=== PATIENT | female | born 1930 | race Caucasian/White ===

== ENCOUNTER 2018-02-03 05:26 | Observation (INO) ==
[2018-02-03] MEDS ORDERED: HYDROmorphone PF Inj 1 MG/ML Ampul IV.PUSH ONE (05:44)
[2018-02-03 06:05] LABS: Baso % (Auto) 0.2 % (0.0-2.0); Hematocrit 39.2 % (35.0-46.0); Hemoglobin 13.4 gm/dL (11.6-15.3); Mean Corpuscular HGB Conc 34.3 % (32.0-36.0); Mean Corpuscular Volume 93.3 fL (80.0-100.0); Mean Platelet Volume 7.5 fL (7.0-11.0); Mono # (Auto) 1.1 th/mm3 (0.0-0.9); Mono % (Auto) 5.4 % (0.0-8.0); Neut % (Auto) 89.4 % (16.0-70.0); Platelet Count 327 th/mm3 (150-450); Red Cell Distribution Width 14.1 % (11.6-17.2); White Blood Count 20.1 th/mm3 (4.0-11.0)
[2018-02-03 06:18] LABS: Activated Partial Thrombo Time 23.3 sec (23.4-31.7); Prothrombin Time 10.5 sec (9.8-11.6)
--- NOTE | 2018-02-03 06:32 | XR ---
EXAM DATE: 02/03/2018 6:24 AM EST AGE/SEX: 87 years / Female INDICATIONS: Pain due to fall. CLINICAL DATA: This is the patient's initial encounter. Patient reports that signs and symptoms have been present for 1 day and indicates a pain score of 2/10. MEDICAL/SURGICAL HISTORY: Hypertension. Hypothyroidism. . Cervical fusion. COMPARISON: . FINDINGS: No fracture is seen. The hip joints are normally aligned. The pubic symphysis and sacroiliac joints a ppear aligned. There is degenerative change at the lower lumbar spine. 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 CONCLUSION: No acute abnormality is seen. Electronically signed by: Kayode Giles MD Board Certified Radiologist 02/03/2018 6:30 AM EST
[2018-02-03 06:33] LABS: Alanine Aminotransferase 24 U/L (10-53); Albumin 3.8 g/dL (3.4-5.0); Anion Gap 9 meq/L (5-15); Aspartate Aminotransferase 33 U/L (15-37); Blood Urea Nitrogen 16 mg/dL (7-18); Calcium 8.3 mg/dL (8.5-10.1); Carbon Dioxide 25.7 meq/L (21.0-32.0); Chloride 106 meq/L (98-107); Glomerular Filtration Rate 68 mL/min (>89); Glucose,Random 156 mg/dL (74-106); Potassium 3.3 meq/L (3.5-5.1); Sodium 141 meq/L (136-145)
--- NOTE | 2018-02-03 06:34 | XR ---
EXAM DATE: 02/03/2018 6:26 AM EST AGE/SEX: 87 years / Female INDICATIONS: Trauma due to fall. CLINICAL DATA: This is the patient's initial encounter. Patient reports that signs and symptoms have been present for 1 day and indicates a pain score of 0/10. MEDICAL/SURGICAL HISTORY: Hypertension. Hypothyroidism. . Cervical fusion. COMPARISON: [facility], XR CHEST PA AND LAT, 09/08/2016. . FINDINGS: The heart size is upper limits of normal. There is increased density at the medial right base. This w as present previously. This could be related to a fat pad or eventration of the diaphragm. There are some focal increased density seen at the left base which appears to overlap the anterior aspect of th e fourth rib. The lungs appear otherwise clear. Surgical hardware is seen in the cervical spine. CONCLUSION: No acute cardiopulmonary process. Focal increased density at the left base projecting over the left cardiac apex and the anterior fourt h left rib. Uncertain if this represents some focal increased density related to the rib or potential ly an underlying mass. This could be followed up with a future chest x-ray. Electronically signed by: Kayode Giles MD Board Certified Radiologist 02/03/2018 6:33 AM EST
[2018-02-03 06:36] LABS: Alkaline Phosphatase 88 U/L (45-117)
--- NOTE | 2018-02-03 06:53 | ED ---
HPI General Chief Complaint: Fall Stated Complaint: Fall Time Seen by Provider: 02/03/18 05:44 Source: patient and EMS Mode of arrival: EMS Limitations: no limitations History of Present Illness HPI Narrative: Is an 87-year-old woman presents emerged prior complaining of right leg pain rating from the low back down all the way into her right leg following a fall. She complains of severe pain in her right leg after a fall. She is unable to describe its on the right side. Denies hitting her head. She had a crawl to the phone which took several hours. She fell initially about 6 PM. She otherwise has been feeling generally well and healthy. No other complaints. Related Data Home Medications Medication Instructions Recorded Confirmed amlodipine PO DAILY 02/03/18 atorvastatin PO DAILY 02/03/18 levothyroxine mcg PO DAILY 02/03/18 losartan mg PO DAILY 02/03/18 Allergies Allergy/AdvReac Type Severity Reaction Status Date / Time ciprofloxacin Allergy Severe Hives Verified 02/03/18 05:35 Review of Systems ROS: all other systems reviewed are negative [facility] Medical History Medical History HTN (hypertension) (Acute) High cholesterol (Acute) Surgical History Surgical History Hx of neck surgery (Acute) Social History Social History Substance History: No History of Abuse Second Hand Smoke Exposure: No Smoking Status: Never smoker How Often Do You Have a Drink Containing Alcohol: Never Recent Travel in [facility] within the Last 8 Weeks: No Recent Out of Country Travel within the Last 8 Weeks: No Immunization History Tetanus Immunization: Unsure Exam Narrative Exam Narrative: GENERAL: 87-year-old woman, appears uncomfortable, nontoxic. SKIN: Focused skin assessment warm/dry. HEAD: Atraumatic. Normocephalic. EYES: Pupils equal and round. No scleral icterus. No injection or drainage. ENT: No nasal bleeding or discharge. Mucous membranes pink and moist. NECK: Trachea midline. No JVD. CARDIOVASCULAR: Regular rate and rhythm. No murmur appreciated. RESPIRATORY: No accessory muscle use. Clear to auscultation. Breath sounds equal bilaterally. GASTROINTESTINAL: Abdomen soft, non-tender, nondistended. Hepatic and splenic margins not palpable. MUSCULOSKELETAL: Hold right hip flexed, resisting any movement of the hip or knee. There is no knee tenderness. Good pulses distally. NEUROLOGICAL: Awake and alert. No obvious cranial nerve deficits. Motor grossly within normal limits. Normal speech. PSYCHIATRIC: Appropriate mood and affect; insight and judgment normal. Course Initial Documented Vital Signs Temperature 98.5 F 02/03/18 05:35 Pulse Rate 103 H 02/03/18 05:35 Respiratory Rate 16 02/03/18 05:35 Blood Pressure 168/77 H 02/03/18 05:35 Pulse Oximetry 97 02/03/18 05:35 Last Documented Vital Signs Temperature 98.5 F 02/03/18 05:35 Pulse Rate 90 02/03/18 07:08 Respiratory Rate 16 02/03/18 07:08 Blood Pressure 118/63 02/03/18 07:08 Pulse Oximetry 97 02/03/18 07:09 Medical Decision Making MDM Narrative Medical decision making narrative: 87-year-old woman with a fall, right lower extremity injury. Suspect hip fracture. Will check labs, x-ray, pain control, reassess. Medical Screen Exam Complete: Yes Emergency Medical Condition: Yes Lab Data Result diagrams: 02/03/18 05:50 02/03/18 05:50 Lab Results 02/03/18 02/03/18 02/03/18 Range/Units 05:50 05:50 05:50 WBC 20.1 H (4.0-11.0) th/mm3 RBC 4.20 (4.00-5.30) mil/mm3 Hgb 13.4 (11.6-15.3) gm/dL Hct 39.2 (35.0-46.0) % MCV 93.3 (80.0-100.0) fL MCH 32.0 (27.0-34.0) pg MCHC 34.3 (32.0-36.0) % RDW 14.1 (11.6-17.2) % Plt Count 327 (150-450) th/mm3 MPV 7.5 (7.0-11.0) fL Neut % (Auto) 89.4 H (16.0-70.0) % Lymph % (Auto) 5.0 L (9.0-44.0) % Liberty % (Auto) 5.4 (0.0-8.0) % Eos % (Auto) 0.0 (0.0-4.0) % Baso % (Auto) 0.2 (0.0-2.0) % Neut # (Auto) 18.0 H (1.8-7.7) th/mm3 Lymph # (Auto) 1.0 (1.0-4.8) th/mm3 Liberty # (Auto) 1.1 H (0.0-0.9) th/mm3 Eos # (Auto) 0.0 (0.0-0.4) th/mm3 Baso # (Auto) 0.0 (0.0-0.2) th/mm3 WBC Differential . Differential Comment Auto diff final PT 10.5 (9.8-11.6) sec INR 1.0 Ratio APTT 23.3 L (23.4-31.7) sec Sodium 141 (136-145) meq/L Potassium 3.3 L (3.5-5.1) meq/L Chloride 106 (98-107) meq/L Carbon Dioxide 25.7 (21.0-32.0) meq/L Anion Gap 9 (5-15) meq/L BUN 16 (7-18) mg/dL Creatinine 0.80 (0.50-1.00) mg/dL Estimated GFR 68 L (>89) mL/min Random Glucose 156 H (74-106) mg/dL Calcium 8.3 L (8.5-10.1) mg/dL Total Bilirubin 0.6 (0.2-1.0) mg/dL AST 33 (15-37) U/L ALT 24 (10-53) U/L Alkaline Phosphatase 88 (45-117) U/L Total Protein 7.0 (6.4-8.2) g/dL Albumin 3.8 (3.4-5.0) g/dL Blood Type Blood Type Recheck Antibody Screen 02/03/18 Range/Units 05:50 WBC (4.0-11.0) th/mm3 RBC (4.00-5.30) mil/mm3 Hgb (11.6-15.3) gm/dL Hct (35.0-46.0) % MCV (80.0-100.0) fL MCH (27.0-34.0) pg MCHC (32.0-36.0) % RDW (11.6-17.2) % Plt Count (150-450) th/mm3 MPV (7.0-11.0) fL Neut % (Auto) (16.0-70.0) % Lymph % (Auto) (9.0-44.0) % Liberty % (Auto) (0.0-8.0) % Eos % (Auto) (0.0-4.0) % Baso % (Auto) (0.0-2.0) % Neut # (Auto) (1.8-7.7) th/mm3 Lymph # (Auto) (1.0-4.8) th/mm3 Liberty # (Auto) (0.0-0.9) th/mm3 Eos # (Auto) (0.0-0.4) th/mm3 Baso # (Auto) (0.0-0.2) th/mm3 WBC Differential Differential Comment PT (9.8-11.6) sec INR Ratio APTT (23.4-31.7) sec Sodium (136-145) meq/L Potassium (3.5-5.1) meq/L Chloride (98-107) meq/L Carbon Dioxide (21.0-32.0) meq/L Anion Gap (5-15) meq/L BUN (7-18) mg/dL Creatinine (0.50-1.00) mg/dL Estimated GFR (>89) mL/min Random Glucose (74-106) mg/dL Calcium (8.5-10.1) mg/dL Total Bilirubin (0.2-1.0) mg/dL AST (15-37) U/L ALT (10-53) U/L Alkaline Phosphatase (45-117) U/L Total Protein (6.4-8.2) g/dL Albumin (3.4-5.0) g/dL Blood Type O Positive Blood Type Recheck Required Antibody Screen Negative Imaging Data Radiologist's impression: Chest X-Ray 02/03/18 05:44 CONCLUSION: No acute cardiopulmonary process. Focal increased density at the left base projecting over the left cardiac apex and the anterior fourth left rib. Uncertain if this represents some focal increased density related to the rib or potentially an underlying mass. This could be followed up with a future chest x-ray. Hip X-Ray 02/03/18 05:45 CONCLUSION: No acute abnormality is seen. Knee X-Ray 02/03/18 06:31 CONCLUSION: Mild degenerative change. No evidence of acute abnormality. Discharge Plan Discharge Disposition Patient Disposition: Sign Out(ED Internal Use Only) Physicians Team ED Provider: Mat Laird Primary Care Provider: UNKNOWN, Rxs /Orders / Referrals /Forms Prescriptions: No Action atorvastatin 10 mg Tablet PO DAILY RF: 0 losartan 25 mg Tablet PO DAILY RF: 0 levothyroxine 13 mcg Capsule PO DAILY RF: 0 amlodipine PO DAILY RF: 0 Status ED Status: With Doctor
--- NOTE | 2018-02-03 06:57 | XR ---
EXAM DATE: 02/03/2018 6:50 AM EST AGE/SEX: 87 years / Female INDICATIONS: Pain due to fall. CLINICAL DATA: This is the patient's initial encounter. Patient reports that signs and symptoms have been present for 1 day and indicates a pain score of 4/10. MEDICAL/SURGICAL HISTORY: . Hypertension. Hypothyroidism. . . Cervical fusion. COMPARISON: No prior exams available for comparison. FINDINGS: Bony structures are intact and in normal alignment. Joints are intact without dislocation . . Mild d egenerative changes identified within the medial lateral joint line. Osseous density is normal. Sof t tissues are unremarkable. No radiopaque foreign bodies seen. CONCLUSION: Mild degenerative change. No evidence of acute abnormality. Electronically signed by: Griselda Marques MD Board Certified Radiologist 02/03/2018 6:56 AM RIGOBERTO T
--- NOTE | 2018-02-03 08:16 | CT ---
EXAM DATE: 02/03/2018 8:03 AM EST AGE/SEX: 87 years / Female INDICATIONS: Right leg pain radiating from back, status post fall yesterday. CLINICAL DATA: This is the patient's initial encounter. Patient reports that signs and symptoms have been present for 2 days and indicates a pain score of 6/10. MEDICAL/SURGICAL HISTORY: Hypertension. . neck surgery RADIATION DOSE: 28.58 CTDI (mGy) COMPARISON: No prior exams available for comparison. TECHNIQUE: Contiguous axial images were acquired with a multirow detector CT scanner without contras t. Multiplanar reconstructions in the sagittal and coronal plane were also performed. Using automate d exposure control and adjustment of the mA and/or kV according to patient size, radiation dose was k ept as low as reasonably achievable to obtain optimal diagnostic quality images. DICOM format image data is available electronically for review and comparison. FINDINGS: Vertebrae: There is a superior endplate disc herniation at the level of T12. Margins are well-cortic ated. The remainder of the vertebral bodies maintain normal height. The bones appear mildly osteopeni c. No evidence of vertebral body fracture. Alignment: There is levoscoliosis of the lumbar spine present on the frontal exam and retrolisthesis of L1 on L2, L2 on L3 and anterolisthesis of L4 on L5 and to a lesser extent L5 on S1. T12-L1: The thecal sac has a normal diameter. No evidence of disc bulge or protrusion. The neural foramina are patent bilaterally. Moderate facet degenerative change. L1-L2: Severe disc desiccation and disc space narrowing with grade 1 retrolisthesis of L1 on L2. Aki cified posterior disc osteophyte complex and moderate facet degenerative changes. Severe bilateral ne uroforaminal stenosis, right greater than left. No significant spinal canal stenosis. L2-L3: Severe disc desiccation and disc space narrowing with posterior disc osteophyte complex and m oderate facet degenerative changes. Severe right-sided neuroforaminal stenosis and moderate to severe on the left. L3-L4: Disc desiccation and disc space narrowing with vacuum disc phenomena and a broad-based glass installer ior disc protrusion extending into the bilateral neuroforamina. Moderate facet degenerative changes. There is severe right-sided neuroforaminal stenosis and moderate on the left. L4-L5: Severe disc desiccation and disc space narrowing with grade 1 anterolisthesis of L4 and L5. P osterior osteophytes and severe facet degenerative changes result in severe central canal stenosis an d severe bilateral neuroforaminal stenosis. L5-S1: Disc desiccation and disc space narrowing with grade 1 anterolisthesis of L5 on S1. Posterior disc osteophyte complex and severe facet degenerative changes results in severe central canal stenos is and severe bilateral neuroforaminal stenosis. CONCLUSION: 1. No evidence of fracture. Severe degenerative changes seen throughout the imaged thoracic and lumb ar spine resulting in multiple levels of severe central canal stenosis and neuroforaminal stenosis. Electronically signed by: Griselda Marques MD Board Certified Radiologist 02/03/2018 8:15 AM RIGOBERTO T
--- NOTE | 2018-02-03 08:19 | CT ---
EXAM DATE: 02/03/2018 8:02 AM EST AGE/SEX: 87 years / Female INDICATIONS: Right leg pain radiating from back, status post fall yesterday. CLINICAL DATA: This is the patient's initial encounter. Patient reports that signs and symptoms have been present for 2 days and indicates a pain score of 6/10. MEDICAL/SURGICAL HISTORY: Hypertension. . Neck surgery RADIATION DOSE: 12.14 CTDI (mGy) COMPARISON: [facility], HIP RIGHT W AP PELVIS 2V, 02/03/2018. [facility] [place] LUMBAR SPINE W/O CONTRAST, . . TECHNIQUE: Multiple contiguous axial images were obtained through the pelvis without contrast. Imag es were obtained using multiple row detector helical technique. . Using automated exposure control an d adjustment of the mA and/or kV according to patient size, radiation dose was kept as low as reasona yesi achievable to obtain optimal diagnostic quality images. DICOM format image data is available yuli ctronically for review and comparison. FINDINGS: Bowel/Mesentery: The bowel loops are grossly unremarkable. The sigmoid colon has a normal configura tion. Bladder: Contours are smooth. Retroperitoneum: No evidence of deep pelvic adenopathy. Reproductive Organs: Multiple calcified fibroids identified within the uterus. Inguinal: The inguinal region is unremarkable without evidence of adenopathy. Bony Structures: Severe degenerative changes identified within the lumbar spine, pubic symphysis and mild degenerative changes of the hips. No evidence of fracture. The bones appear mildly osteopenic. CONCLUSION: 1. Severe degenerative changes within the lumbar spine. This is better described on comparison CT alma rosa mbar spine which demonstrates multiple levels of central canal stenosis and bilateral neuroforaminal stenosis which is worse on the right. No evidence of fracture. Electronically signed by: Griselda Marques MD Board Certified Radiologist 02/03/2018 8:18 AM ES T
[2018-02-03 09:52] LABS: Bilirubin,Urine Negative (Negative); Clarity,Urine Clear (Clear); Color,Urine Yellow (Yellw/Straw); Glucose,Urine (UA) Negative (Negative); Leukocyte Esterase,Urine Negative (Negative); Mucus,Urine Few /lpf (Occasional); Nitrite,Urine Negative (Negative); Specific Gravity,Urine 1.015 (1.002-1.035)
[2018-02-03] MEDS ORDERED: Morphine Inj 4 MG/ML Vial IV.PUSH ONE (10:44)
[2018-02-03] MEDS ORDERED: Acetaminophen 325 MG Tablet PO PRN ×2 (10:58)
[2018-02-03] MEDS ORDERED: Naloxone Inj 0.4 MG/ML Vial IV.PUSH PRN (10:58)
[2018-02-03] MEDS ORDERED: Ketorolac Inj 30 MG/ML (IVP) Vial IV.PUSH PRN (10:58)
[2018-02-03] MEDS ORDERED: Bisacodyl 10 MG Supp RECTAL PRN (10:58)
[2018-02-03] MEDS ORDERED: Iohexol 300 MG/ML 50 ML Vial (for Rad Diag) IVCONTRAST ONE (11:08)
[2018-02-03] MEDS: Heparin - SQ 10,000 UNITS/ML Vial SQ SCH ×2 (11:19→22:00)
[2018-02-03] MEDS ORDERED: Ketorolac Inj 30 MG/ML (IVP) Vial IV.PUSH ONE (15:22)
--- NOTE | 2018-02-03 15:22 | P.HPIM ---
History of Present Illness Primary Care Physician: UNKNOWN Chief Complaint: Back with right lower leg pain and numbness History of Present Illness: 87-year-old white female with a history of chronic low back pain, hyperlipidemia, hypertension, hypothyroidism presents emergency room after she fell yesterday evening secondary to worsening of her chronic low back pain now with radiation towards her right lower leg with mild right lateral thigh numbness. Patient states that she landed on her right side and since then had difficulty getting up and putting weight and ambulating. She usually ambulates independently. She has had chronic low back pain for many years and stated that during the past 4 days this pain has exacerbated and therefore contacted her primary care physician who started her on a Medrol Dosepak. She took her first steroid dose yesterday morning with no relief. She reports she had previous neck surgery with Dr. Tan Pfeiffer and at this time would follow-up with him as an outpatient for her chronic back pain and lumbar stenosis. She denies loss of consciousness from the fall. She states that she currently lives alone. Diagnosis (1) Degenerative lumbar spinal stenosis: Review of Systems Constitutional: Reports as per HPI, Denies fatigue and Denies headache(s) Eyes: Denies blurry vision, Denies change in vision and Denies eye pain Ears, Nose, Mouth, and Throat: Denies abnormal hearing, Denies headache(s), Denies mouth pain, Denies nasal congestion, Denies neck pain and Denies sore throat Cardiovascular: Denies chest pain, Denies pedal edema, Denies palpitations and Denies dyspnea Respiratory: Denies cough and Denies dyspnea Gastrointestinal: Denies abdominal pain, Denies constipation, Denies loose stools, Denies nausea and Denies vomiting Musculoskeletal: Reports as per HPI, Reports back pain, Denies myalgias, Reports arthralgias (Chronic back pain worse as per HPI), Denies neck pain and Reports numbness (Right lateral upper leg area) Skin/Breast: Denies new lesions and Denies rash Neurologic: Reports as per HPI, Denies abnormal hearing, Denies headache(s), Denies focal weakness, Denies memory loss, Reports numbness and Reports radicular pain Psychiatric: Denies anxiety, Denies depression and Denies memory loss Endocrine: Denies cold intolerance, Denies heat intolerance and Denies palpitations Hematologic/Lymphatic: Denies easy bleeding and Denies easy bruising PMFSH Medical History Medical History HTN (hypertension) (Chronic) High cholesterol (Chronic) Hypothyroid (Chronic) Surgical History Surgical History Hx of neck surgery (Chronic) Family History Family History Father Heart disease Social History Social History Substance History: No History of Abuse Second Hand Smoke Exposure: No Smoking Status: Never smoker How Often Do You Have a Drink Containing Alcohol: Never Recent Travel in [place] within the Last 8 Weeks: No Recent Out of Country Travel within the Last 8 Weeks: No Immunization History Tetanus Immunization: Unsure Medications and Allergies Allergies Allergy/AdvReac Type Severity Reaction Status Date / Time ciprofloxacin Allergy Severe Hives Verified 02/03/18 05:35 Home Medications Medication Instructions Recorded Confirmed Type amlodipine PO DAILY 02/03/18 History atorvastatin PO DAILY 02/03/18 History levothyroxine mcg PO DAILY 02/03/18 History losartan mg PO DAILY 02/03/18 History methylprednisolone [Medrol (Alfa)] 4 mg PO DAILY 02/03/18 02/03/18 History Active Medications: Active Medications Acetaminophen (Tylenol) 650 mg PO Q4H PRN PRN Reason: Temp > 100.4 Acetaminophen (Tylenol) 650 mg PO Q6HR PRN PRN Reason: PAIN SCALE 1 TO 2 Hydrocodone Bitart/Acetaminophen ([place] 7.5/325) 1 tab PO Q4H PRN PRN Reason: PAIN SCALE 6 TO 10 Last Admin: 02/03/18 13:36 Dose: 1 tab Al Hydroxide/Mg Hydroxide (Milk Of Prisca Liq) 30 ml PO Q12H PRN PRN Reason: Mild Constipation Bisacodyl (Dulcolax Supp) 10 mg RECTAL DAILY PRN PRN Reason: SEVERE CONSITIPATION Cyclobenzaprine HCl (Flexeril) 10 mg PO Q8H PRN PRN Reason: SPASM Heparin Sodium (Porcine) (Heparin Inj) 5,000 units SQ Q12H KRYSTAL Last Admin: 02/03/18 11:19 Dose: 5,000 units Ketorolac Tromethamine (Toradol Inj) 15 mg IV.PUSH Q6H PRN PRN Reason: BREAKTHROUGH PAIN Stop: 02/08/18 10:57 Lactulose (Lactulose Liq) 30 ml PO DAILY PRN PRN Reason: SEVERE CONSITIPATION Naloxone HCl (Narcan Inj) 0.4 mg IV.PUSH UNSCH PRN PRN Reason: SEE LABEL COMMENTS Ondansetron HCl (Zofran Inj) 4 mg IV.PUSH Q6H PRN PRN Reason: NAUSEA OR VOMITING Senna/Docusate Sodium (Roshni-Colace) 1 tab PO BID KRYSTAL Sennosides (Senokot) 17.2 mg PO Q12H PRN PRN Reason: Moderate Constipation Sodium Chloride (Ns Flush) 2 ml IV.FLUSH UNSCH PRN PRN Reason: FLUSH AFTER USING IV ACCESS Sodium Chloride (Ns Flush) 2 ml IV.FLUSH BID KRYSTAL Sodium Chloride (Ns Flush) 2 ml IV.FLUSH PRN PRN PRN Reason: FLUSH AFTER USING IV ACCESS Tramadol HCl (Ultram) 50 mg PO Q4H PRN PRN Reason: PAIN SCALE 3 TO 5 Physical Exam Vital signs: Last Vital Signs Temp 98.5 F 02/03/18 05:35 Pulse 80 02/03/18 10:58 Resp 14 02/03/18 10:58 BP 155/72 H 02/03/18 10:58 Pulse Ox 95 02/03/18 10:58 Intake & Output 02/01/18 02/02/18 02/03/18 02/04/18 06:59 06:59 06:59 06:59 Output Total 600 / 600 Balance -600 / -600 Weight 61.235 kg Results Labs CBC & Chem 7: 02/03/18 05:50 02/03/18 05:50 Imaging Impressions Chest X-Ray 02/03/18 05:44 CONCLUSION: No acute cardiopulmonary process. Focal increased density at the left base projecting over the left cardiac apex and the anterior fourth left rib. Uncertain if this represents some focal increased density related to the rib or potentially an underlying mass. This could be followed up with a future chest x-ray. Hip X-Ray 02/03/18 05:45 CONCLUSION: No acute abnormality is seen. Knee X-Ray 02/03/18 06:31 CONCLUSION: Mild degenerative change. No evidence of acute abnormality. Lumbar Spine CT 02/03/18 07:03 CONCLUSION: 1. No evidence of fracture. Severe degenerative changes seen throughout the imaged thoracic and lumbar spine resulting in multiple levels of severe central canal stenosis and neuroforaminal stenosis. Pelvis CT 02/03/18 07:03 CONCLUSION: 1. Severe degenerative changes within the lumbar spine. This is better described on comparison CT lumbar spine which demonstrates multiple levels of central canal stenosis and bilateral neuroforaminal stenosis which is worse on the right. No evidence of fracture. Caprini VTE Risk Assessment Caprini VTE Risk Assessment: Moderate/High Risk (score >= 2) Caprini Risk Assessment Model: Point Value = 1 Point Value = 2 Point Value = 3 Point Value = 5 Age 41-60 Minor surgery BMI > 25 kg/m2 Swollen legs Varicose veins or History of unexplained or recurrent spontaneous Oral contraceptives or hormone replacement Sepsis (< 1 month) Serious lung disease, including pneumonia (< 1 month) Abnormal pulmonary function Acute myocardial infarction Congestive heart failure (< 1 month) History of inflammatory bowel disease Medical patient at bed rest Age 61-74 Arthroscopic surgery Major open surgery (> 45 min) Laparoscopic surgery (> 45 min) Malignancy Confined to bed (> 72 hours) Immobilizing plaster cast Central venous access Age >= 75 History of VTE Family history of VTE Factor V Leiden Prothrombin [id number] Lupus anticoagulant Anticardiolipin antibodies Elevated serum homocysteine Heparin-induced thrombocytopenia Other congenital or acquired thrombophilia Stroke (< 1 month) Elective arthroplasty Hip, pelvis, or leg fracture Acute spinal cord injury (< 1 month) Prophylaxis Regimen: Total Risk Factor Score Risk Level Prophylaxis Regimen 0-1 Low Early ambulation 2 Moderate Order ONE of the following: *Sequential Compression Device (SCD) *Heparin 5000 units SQ BID 3-4 Higher Order ONE of the following medications: *Heparin 5000 units SQ TID *Enoxaparin/Lovenox 40 mg SQ daily (WT < 150 kg, CrCl > 30 mL/min) *Enoxaparin/Lovenox 30 mg SQ daily (WT < 150 kg, CrCl > 10-29 mL/min) *Enoxaparin/Lovenox 30 mg SQ BID (WT < 150 kg, CrCl > 30 mL/min) AND/OR *Sequential Compression Device (SCD) 5 or more Highest Order ONE of the following medications: *Heparin 5000 units SQ TID (Preferred with Epidurals) *Enoxaparin/Lovenox 40 mg SQ daily (WT < 150 kg, CrCl > 30 mL/min) *Enoxaparin/Lovenox 30 mg SQ daily (WT < 150 kg, CrCl > 10-29 mL/min) *Enoxaparin/Lovenox 30 mg SQ BID (WT < 150 kg, CrCl > 30 mL/min) AND *Sequential Compression Device (SCD) Assessment and Plan (1) Degenerative lumbar spinal stenosis: Code(s): M48.061 - Spinal stenosis, lumbar region without neurogenic claudication Status: Acute Plan 87-year-old white female with a history of hypertension, hyperlipidemia, hypothyroidism, chronic low back pain with acute exacerbation leading to a fall. Status post fall due to acute exacerbation of chronic back pain with right radiculopathy, CT lumbar spine revealed severe lumbar stenosis Place patient observation for pain control, anti-inflammatory, physical therapy to evaluate gait and balance. States that she will follow-up with Dr. Tan Pfeiffer for further evaluation should the pain not improve. Due to her age she is not contemplating surgery at this time. Trial of gabapentin, trial of lidocaine patch Leukocytosisno signs of active infection likely due to stress reaction and recent steroid use History of hypertensionresume home amlodipine and losartan History hyperlipidemiaresume statin History of hypothyroidism resume levothyroxine Hypokalemiareplete DVT prophylaxisheparin
[2018-02-03] MEDS: amLODIPine 5 MG Tablet PO SCH (16:11)
[2018-02-03] MEDS: Lidocaine 5% Patch T-DERMAL SCH (16:24)
[2018-02-03] MEDS: Gabapentin 100 MG Capsule PO SCH (17:20)
[2018-02-03] MEDS: Senna/Docusate Sodium 8.6/50 MG Tablet PO SCH (22:01)
[2018-02-04] MEDS: Levothyroxine 75 MCG Tablet PO SCH (05:49)
[2018-02-04] MEDS ORDERED: Non-Formulary Drug (Levothyroxine [Levothyroxine] 75 MCG) PO SCH (09:00)
[2018-02-04] MEDS: Gabapentin 100 MG Capsule PO SCH ×3 (09:33→17:29)
[2018-02-04] MEDS: Senna/Docusate Sodium 8.6/50 MG Tablet PO SCH ×2 (09:33→21:43)
[2018-02-04] MEDS: amLODIPine 5 MG Tablet PO SCH (09:33)
[2018-02-04] MEDS: Lidocaine 5% Patch T-DERMAL SCH (09:34)
[2018-02-04] MEDS: Heparin - SQ 10,000 UNITS/ML Vial SQ SCH ×2 (10:01→23:52)
[2018-02-04 10:57] LABS: Baso # (Auto) 0.1 th/mm3 (0.0-0.2); Baso % (Auto) 0.5 % (0.0-2.0); Eos # (Auto) 0.1 th/mm3 (0.0-0.4); Hematocrit 42.3 % (35.0-46.0); Hemoglobin 14.4 gm/dL (11.6-15.3); Lymph # (Auto) 1.4 th/mm3 (1.0-4.8); Lymph % (Auto) 11.7 % (9.0-44.0); Mean Corpuscular Volume 94.1 fL (80.0-100.0); Mean Platelet Volume 7.3 fL (7.0-11.0); Mono % (Auto) 8.4 % (0.0-8.0); Neut # (Auto) 9.1 th/mm3 (1.8-7.7); Neut % (Auto) 78.4 % (16.0-70.0); Platelet Count 297 th/mm3 (150-450); Red Blood Count 4.49 mil/mm3 (4.00-5.30); White Blood Count 11.6 th/mm3 (4.0-11.0)
[2018-02-04 11:42] LABS: Anion Gap 8 meq/L (5-15); Blood Urea Nitrogen 11 mg/dL (7-18); Calcium 7.9 mg/dL (8.5-10.1); Carbon Dioxide 27.1 meq/L (21.0-32.0); Chloride 104 meq/L (98-107); Glomerular Filtration Rate Greater Than 89 mL/min (>89); Glucose,Random 101 mg/dL (74-106); Potassium 3.3 meq/L (3.5-5.1); Sodium 139 meq/L (136-145)
--- NOTE | 2018-02-04 12:22 | CT ---
EXAM DATE: 02/04/2018 12:14 PM EST AGE/SEX: 87 years / Female INDICATIONS: Rule out Mass, abnormal chest xray CLINICAL DATA: This is the patient's initial encounter. Patient reports that signs and symptoms have been present for 1 day and indicates a pain score of 6/10. MEDICAL/SURGICAL HISTORY: Hypertension. Hypothyroidism. Fusion, cervical. RADIATION DOSE: 7.51 CTDI (mGy) COMPARISON: [facility], CT CHEST W/O CONTRAST, 01/27/2016. [facility], CHEST 1V SINGLE AP, 02/03/2018. . TECHNIQUE: Multiple contiguous axial images were obtained through the chest without contrast. Image s were obtained in suspended respiration using multiple row detector helical technique. Using automa coco exposure control and adjustment of the mA and/or kV according to patient size, radiation dose was kept as low as reasonably achievable to obtain optimal diagnostic quality images. DICOM format imag e data is available electronically for review and comparison. FINDINGS: Lungs: The lungs are significant for an area of progressive linear parenchymal opacity involving the left lower lobe adjacent to the fissure. No evidence of mass. There are bilateral linear airspace op acities within the lower lobes consistent with scar. Mediastinum: There is good visualization of the great vessels of the middle mediastinum. No evidenc e of mediastinal or hilar adenopathy/mass. Pleurae: Pleural thickening adjacent to the inferior left hemithorax. Axillae: Unremarkable. Bony Structures: Diffuse osteopenia with extensive areas of fixation within the cervical spine grade 1 retrolisthesis of L1 on L2 and concavity involving the superior endplate of T12. Miscellaneous: The examination was extended to include the upper abdomen, and both adrenal glands ar e normal in size and configuration. Stents of atherosclerosis. CONCLUSION: 1. The airspace abnormality seen on comparison plain radiograph corresponds with an area of progress evelyn scarring and consolidation involving the lingula. No evidence of concerning mass. Electronically signed by: Griselda Marques MD Board Certified Radiologist 02/04/2018 12:20 PM E
--- NOTE | 2018-02-04 12:47 | MR ---
EXAM DATE: 02/04/2018 12:37 PM EST AGE/SEX: 87 years / Female INDICATIONS: . Fall, low back pain. CLINICAL DATA: This is the patient's initial encounter. Patient reports that signs and symptoms have been present for 1 day and indicates a pain score of 7/10. MEDICAL/SURGICAL HISTORY: Hypertension. Fusion, cervical. COMPARISON: [facility] [place], CT LUMBAR SPINE W/O CONTRAST, 02/03/2018. . TECHNIQUE: Multiplanar, multisequence MRI of the lumbar spine was performed without contrast. Patie nt was scanned in a sitting position; neutral, flexion, and extension scans were performed in the sa gittal plane. FINDINGS: The most caudal-appearing lumbar vertebra is numbered as L5. The marrow signal appears intact except for scattered degenerative change . No significant compression deformities, spondylolisis is seen. A pproximate 7 mm retrolisthesis L1-2 in addition to steplike anterolisthesis L4-5 L5 S1to a slight deg ree on a chronic and degenerative basis. Large Schmorl node formation involving superior endplate of T12. 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 T12-L1: Small focal HNP on the right indents the thecal sac without any significant compromise to the exiting nerve roots or the thecal sac. L1-L2: Significant degenerative changes are present in the disc space and facets. There is moderate neural foramina compromise bilaterally due to bulging disc and hypertrophic changes . There is moderate to severe overall thecal sac stenosis due to central disc/osteophyte complex and hy pertrophic changes. L2-L3: Moderate degenerative changes are present in the disc space and facets. There is slight neural foramina compromise on the right due to asymmetrical bulging disc and hypertro phic changes. Slight bulging disc and hypertrophic changes are seen with indentation on the thecal sac and no signi ficant compromise to the thecal sac. L3-L4: Moderate degenerative changes are present in the disc space and facets. There is slight neural foramina compromise bilaterally due to bulging disc and hypertrophic changes. There is significant overall thecal sac stenosis due to central disc/osteophyte complex and hypertrop hic changes. L4-L5: Significant degenerative changes are present in the disc space and facets. There is moderate neural foramina compromise bilaterally due to bulging disc and hypertrophic changes . There is significant overall thecal sac stenosis due to central disc/osteophyte complex and hyper trophic changes. L5-S1: Significant degenerative changes are present in the disc space and facets. There is slight overall thecal sac stenosis due to central disc/osteophyte complex and hypertrophic c hanges. CONCLUSION: 1. 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 2. Multilevel spondylolisthesis on a chronic and degenerative basis worse at L1-2. 3. Neural foraminal compromise bilateral L1-2, bilateral L3-4, bilateral L4-5, right L2-3. 4. Slight thecal sac stenosis L5-S1. Electronically signed by: Rebeka Black MD Board Certified Radiologist 02/04/2018 12:46 PM EST
[2018-02-04 13:22] LABS: Bacteria,Urine Rare /hpf; Bilirubin,Urine Negative (Negative); Clarity,Urine Clear (Clear); Color,Urine Yellow (Yellw/Straw); Glucose,Urine (UA) Negative (Negative); Leukocyte Esterase,Urine Negative (Negative); Mucus,Urine Few /lpf (Occasional); Nitrite,Urine Negative (Negative)
--- NOTE | 2018-02-04 15:50 | P.PNIM ---
Subjective Interval history: Follow-up right lower extremity pain and numbness, acute urinary retention Patient seen and examined while resting in bed. She reports intermittent episodes of sharp, stabbing type pain radiating from her right buttock down to her right lower extremity. RN also states that there is concern for urinary retention as a bladder scan showed a postvoid residual of 600 mL's. Mccall catheter was inserted with 650 mL's out. Patient states she follows up with Dr. Damon biomedical specialist outpatient. Patient had a recent fall injury that she believes exacerbated her symptoms. Patient believes that her leg may have given out on her. Patient denies any loss of bowel or bladder function. She further denies any upper extremity weakness. No fevers or chills. Physical Exam Vital signs: Last Vital Signs Temp 97.9 F 02/04/18 07:25 Pulse 90 02/04/18 11:26 Resp 16 02/04/18 11:41 BP 158/79 H 02/04/18 11:26 Pulse Ox 93 L 02/04/18 11:26 Intake & Output 02/02/18 02/03/18 02/04/18 02/05/18 06:59 06:59 06:59 06:59 Output Total 600 / 600 650 / 650 Balance -600 / -600 -650 / -650 Weight 61.235 kg 63.3 kg Narrative: GENERAL: mild distress d/t intermittent RLE sharp pains SKIN: Warm and dry. HEAD: Normocephalic, atraumatic EYES: No scleral icterus. No injection or drainage. NECK: Supple, trachea midline. No JVD or lymphadenopathy. CARDIOVASCULAR: Regular rate and rhythm without murmurs, gallops, or rubs. RESPIRATORY: Breath sounds equal bilaterally. No accessory muscle use. GASTROINTESTINAL: Abdomen soft, non-tender, nondistended. MUSCULOSKELETAL: No cyanosis, or edema. Urinary Catheter Management Straight: Cath placed during this visit: yes Urethral indwelling: Yes Reason for continuing: Acute urinary retention Insertion date: 02/04/18 Insertion time: 10:14 Indwelling Urethral Catheter: Urethral indwelling: Yes Reason for continuing: Acute urinary retention Results Labs CBC & Chem 7: 02/04/18 10:41 02/04/18 10:41 Imaging Imaging: Impressions Chest CT 02/04/18 00:00 CONCLUSION: 1. The airspace abnormality seen on comparison plain radiograph corresponds with an area of progressive scarring and consolidation involving the lingula. No evidence of concerning mass. Lumbar Spine MRI 02/04/18 00:00 CONCLUSION: 1. 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 2. Multilevel spondylolisthesis on a chronic and degenerative basis worse at L1 -2. 3. Neural foraminal compromise bilateral L1-2, bilateral L3-4, bilateral L4-5, right L2-3. 4. Slight thecal sac stenosis L5-S1. Assessment and Plan (1) Degenerative lumbar spinal stenosis: Code(s): M48.061 - Spinal stenosis, lumbar region without neurogenic claudication Status: Acute Plan 87-year-old white female with a history of hypertension, hyperlipidemia, hypothyroidism, chronic low back pain with acute exacerbation leading to a fall. Status post fall due to acute exacerbation of chronic back pain with right radiculopathy -CT lumbar spine revealed severe lumbar stenosis -MRI of lumbar spine completed and shows significant thecal sac stenosis L3-4, L4-5, moderate to severe thecal sac stenosis L1-2.2. Multilevel spondylolisthesis on a chronic and degenerative basis worse at L1-2.3. Neural foraminal compromise bilateral L1-2, bilateral L3-4, bilateral L4-5, right L2- 3.4. Slight thecal sac stenosis L5-S1. -pt states that she will follow-up with Dr. Tan Pfeiffer for further evaluation should the pain not improve. Due to her age she is not contemplating surgery at this time. Dr Pfeiffer's group consulted as patient is experiencing acute urinary retention with above findings on MRI. We appreciate their input. -pain control, anti-inflammatory, physical therapy to evaluate gait and balance -continue trial of gabapentin, trial of lidocaine patch -continue Methylprednisolone 4 mg PO daily Acute urinary retention -post void residual of 600 ml by bladder scan -mccall cath placed with 650 ml out CXR with probable mass -CT chest w/ no evidence of concerning mass Leukocytosis -no signs of active infection likely due to stress reaction and recent steroid use History of hypertension resume home amlodipine and losartan History hyperlipidemia resume statin History of hypothyroidism -resume levothyroxine Hypokalemia replete MDM: self Code: Full GI ppx: PPI DVT prophylaxisheparin Discussed Condition With: RN, patient Progress Note: Quality VTE Deep Vein Thrombosis/Pulmonary Embolism Present on Admission: No
[2018-02-04] MEDS: Pantoprazole Inj 40 MG Vial IV.PUSH SCH (17:28)
[2018-02-05] MEDS: Levothyroxine 75 MCG Tablet PO SCH (05:24)
[2018-02-05] MEDS: Senna/Docusate Sodium 8.6/50 MG Tablet PO SCH ×2 (08:43→22:00)
[2018-02-05] MEDS: Gabapentin 100 MG Capsule PO SCH ×3 (08:43→17:31)
[2018-02-05] MEDS: Lidocaine 5% Patch T-DERMAL SCH (08:44)
[2018-02-05] MEDS: amLODIPine 5 MG Tablet PO SCH (08:44)
--- NOTE | 2018-02-05 11:49 | P.CONOP ---
[facility] Orthopedics Consult Note - [facility] Consult date: 02/05/18 Chief complaint: Leg pain Narrative: Neva is an 87-year-old female. She has a long history of low back pain. She had a fall 2 days ago. Since her fall she has had increased low back pain with pain radiating down her right leg. The pain radiates down to below her knee. She feels intermittent numbness along her thigh. She has had difficulty mobilizing or ambulating. She normally ambulates independently. Pain is worse with movement of her low back. Pain is improved with rest. She was having significant low back pain last week and was prescribed a Medrol Dosepak. She only took 1 day of the medication prior to her fall. After she felt the pain was severely increased. She presented emergency room for further management. Review of Systems Patient denies fevers, chills, weight loss, headache, visual changes, hearing loss, chest pain, palpitations, shortness of breath, nausea, vomiting, no urinary changes, diarrhea, bowel changes, neck pain, back pain, skin rashes, weakness of extremities, easy bleeding, enlarged lymph nodes, anxiety, or depression. She complains of low back pain, right leg pain, and intermittent thigh numbness. Patient's social history, past medical history, and family history were reviewed on chart and with patient. [facility] - History History Provided By: Patient - Medical History Medical History: Medical History (Last Reviewed 02/05/18 @ 11:47 by Glenn Alcantara MD) HTN (hypertension) High cholesterol Hypothyroid - Surgical History Surgical History: Surgical History (Last Reviewed 02/05/18 @ 11:47 by Glenn Alcantara MD) Hx of neck surgery - Family History Family History: Family History (Last Reviewed 02/05/18 @ 11:47 by Glenn Alcantara MD) Father Heart disease - Social History I have reviewed the patient's Social History: Yes - Tobacco History Second Hand Smoke Exposure: No Tobacco Use In Past 30 Days: No Smoking Status: Former smoker Tobacco Type: Cigarettes - Alcohol History How Often Do You Have a Drink Containing Alcohol: Monthly or less - Substance Use History Substance History: No History of Abuse - Travel History Recent Travel in the [place] Within the Last 8 Weeks: No Recent Travel Out of the Country Within the Last 8 Weeks: No - Immunization History Tetanus Immunization: Unsure Medications and Allergies Active Medications: Active Medications Acetaminophen (Tylenol) 650 mg PO Q4H PRN PRN Reason: Temp > 100.4 Acetaminophen (Tylenol) 650 mg PO Q6HR PRN PRN Reason: PAIN SCALE 1 TO 2 Hydrocodone Bitart/Acetaminophen (Gregory 7.5/325) 1 tab PO Q4H PRN PRN Reason: PAIN SCALE 6 TO 10 Last Admin: 02/05/18 04:24 Dose: 1 tab Al Hydroxide/Mg Hydroxide (Milk Of Magnesia Liq) 30 ml PO Q12H PRN PRN Reason: Mild Constipation Amlodipine Besylate (Norvasc) 5 mg PO DAILY [facility] Last Admin: 02/05/18 08:44 Dose: 5 mg Atorvastatin Calcium (Lipitor) 20 mg PO DAILY [facility] Last Admin: 02/05/18 08:43 Dose: 20 mg Bisacodyl (Dulcolax Supp) 10 mg RECTAL DAILY PRN PRN Reason: SEVERE CONSITIPATION Cyclobenzaprine HCl (Flexeril) 10 mg PO Q8H PRN PRN Reason: SPASM Gabapentin (Neurontin) 100 mg PO TID [facility] Last Admin: 02/05/18 08:43 Dose: 100 mg Heparin Sodium (Porcine) (Heparin Inj) 5,000 units SQ Q12H [facility] Last Admin: 02/04/18 23:52 Dose: 5,000 units Ketorolac Tromethamine (Toradol Inj) 15 mg IV.PUSH Q6H PRN PRN Reason: BREAKTHROUGH PAIN Stop: 02/08/18 10:57 Lactulose (Lactulose Liq) 30 ml PO DAILY PRN PRN Reason: SEVERE CONSITIPATION Levothyroxine Sodium (Synthroid) 75 mcg PO DAILY@0600 [facility] Last Admin: 02/05/18 05:24 Dose: 75 mcg Lidocaine HCl (Lidoderm 5% Patch.12 Hr) 1 patch T-DERMAL DAILY [facility] Last Admin: 02/05/18 08:44 Dose: 1 patch Losartan Potassium (Cozaar) 25 mg PO DAILY [facility] Last Admin: 02/05/18 08:43 Dose: 25 mg Methylprednisolone (Medrol) 4 mg PO DAILY [facility] Stop: 02/06/18 09:01 Last Admin: 02/05/18 08:44 Dose: 4 mg Naloxone HCl (Narcan Inj) 0.4 mg IV.PUSH UNSCH PRN PRN Reason: SEE LABEL COMMENTS Ondansetron HCl (Zofran Inj) 4 mg IV.PUSH Q6H PRN PRN Reason: NAUSEA OR VOMITING Pantoprazole Sodium (Protonix Inj) 40 mg IV.PUSH Q24H [facility] Last Admin: 02/04/18 17:28 Dose: 40 mg Patch Removal (Remove Old Patch) 1 each T-DERMAL HS [facility] Last Admin: 02/04/18 21:45 Dose: 1 each Senna/Docusate Sodium (Roshni-Colace) 1 tab PO BID [facility] Last Admin: 02/05/18 08:43 Dose: 1 tab Sennosides (Senokot) 17.2 mg PO Q12H PRN PRN Reason: Moderate Constipation Sodium Chloride (Ns Flush) 2 ml IV.FLUSH BID [facility] Last Admin: 02/05/18 08:44 Dose: 2 ml Sodium Chloride (Ns Flush) 2 ml IV.FLUSH PRN PRN PRN Reason: FLUSH AFTER USING IV ACCESS Tramadol HCl (Ultram) 50 mg PO Q4H PRN PRN Reason: PAIN SCALE 3 TO 5 Allergies Allergy/AdvReac Type Severity Reaction Status Date / Time ciprofloxacin Allergy Severe Hives Verified 02/03/18 05:35 Home Medications Medication Instructions Recorded Confirmed Type amlodipine 5 mg PO DAILY 02/03/18 02/03/18 History atorvastatin 20 mg PO DAILY 02/03/18 02/03/18 History levothyroxine 75 mcg PO DAILY 02/03/18 02/03/18 History losartan 25 mg PO DAILY 02/03/18 02/03/18 History methylprednisolone [Medrol (Alfa)] 4 mg PO DAILY 02/03/18 02/03/18 History Exam Vital signs: Vital Signs 02/04/18 16:00 02/04/18 20:00 02/05/18 00:00 Temperature 98.5 F 98.5 F 95.9 F L Pulse Rate 103 H 98 H 87 Respiratory Rate 18 16 16 Blood Pressure 133/81 134/86 152/85 H Pulse Oximetry 94 L 95 95 02/05/18 04:00 02/05/18 07:53 Temperature 96.6 F L 98.6 F Pulse Rate 97 H 85 Respiratory Rate 16 20 Blood Pressure 142/83 H 154/80 H Pulse Oximetry 96 92 L Intake & Output 02/04/18 02/05/18 02/05/18 18:59 06:59 18:59 Intake Total 680 / 680 Output Total 1500 / 1500 1450 / 1450 Balance -1500 / -1500 -770 / -770 Weight 63.3 kg Intake: Oral 680 / 680 Output: Urine 850 / 850 1450 / 1450 Urine Amount (Catheter) 650 / 650 Indwelling Urethral Catheter 650 / 650 Narrative: Neva is a pleasant 87-year-old female. General: Awake and alert. No acute distress. Appears well-developed well- nourished Head: Normocephalic, atraumatic pupils are equal Neck: Soft, nontender, trachea midline Abdomen: Soft, nondistended Examination of right arm reveals no pain or deformity with shoulder, elbow, or wrist motion. Skin is intact. Radial pulse is palpable. Normal capillary refill in fingers. Sensation is intact in radial, ulnar, and median nerve distributions. 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 No lymphadenopathy noted. Examination of left arm reveals no pain or deformity with shoulder, elbow, or wrist motion. Skin is intact. Radial pulse is palpable. Normal capillary refill in fingers. Sensation is intact in radial, ulnar, and median nerve distributions. 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 No lymphadenopathy noted. Examination of left lower extremity reveals no pain or deformity with hip, knee , or ankle motion. Skin is intact. Sensation is intact in left foot. Dorsalis pedis pulse is palpable. Normal capillary refill and feet. Thigh and calf compartments are soft. No lymphadenopathy noted. +5 strength of ankle dorsiflexion and plantarflexion. Straight leg raise test is negative. Examination of right lower extremity reveals no pain or deformity with hip, knee , or ankle motion. Skin is intact. Sensation is intact in right foot. Dorsalis pedis pulse is palpable. Normal capillary refill and feet. Thigh and calf compartments are soft. No lymphadenopathy noted. +5 strength of ankle dorsiflexion and plantarflexion. Leg raise test is negative. Results - Labs Result Diagrams: 02/04/18 10:41 02/04/18 10:41 Labs: Laboratory Results - last 24 hr 02/04/18 10:14 Urine Color Yellow Urine Clarity Clear Urine pH 7.0 Ur Specific [place] 1.010 Urine Protein Negative Urine Glucose (UA) Negative Urine Ketones 20 Urine Occult Blood Negative Urine Nitrate Negative Urine Bilirubin Negative Urine Urobilinogen Less than 2 Ur Leukocyte Esterase Negative Urine RBC Less than 1 Urine WBC Less than 1 Urine Bacteria Rare H Urine Mucus Few H Micro UA Comment Cath-culture ind Ur Microscopic Review Not Reportable Urine Culture Comments Cath-cult indicated - Diagnostic results Imaging: Impressions Chest CT 02/04/18 00:00 CONCLUSION: 1. The airspace abnormality seen on comparison plain radiograph corresponds with an area of progressive scarring and consolidation involving the lingula. No evidence of concerning mass. Lumbar Spine MRI 02/04/18 00:00 CONCLUSION: 1. 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 2. Multilevel spondylolisthesis on a chronic and degenerative basis worse at L1 -2. 3. Neural foraminal compromise bilateral L1-2, bilateral L3-4, bilateral L4-5, right L2-3. 4. Slight thecal sac stenosis L5-S1. Assessment and Plan - Assessment and Plan Neva has severe degenerative disc disease with spinal stenosis of her lumbar spine. She has had increased pain and right leg radiculopathy since her fall 2 days ago. At this point she is having difficulty ambulating or mobilizing secondary to back pain and leg pain. Treatment options were discussed with her. At this point I would recommend interventional radiology consult for epidural steroid injection versus nerve root injection. I would anticipate that this would give her some improvement in her pain. Physical therapy will be consulted for gait training. All questions were answered. She has previously seen Dr. Tan Pfeiffer for her spine. She may follow-up with him as needed. A mid-level provider in my office (nurse practitioner or physician apartment community assistant manager) may see this patient on follow-up visits and continue to implement the objectives of this plan including: Starting or adjusting medications, injections , cast application, orthotics, brace application, physical therapy, radiological studies (including x-ray, MRI, CT, ultrasound, bone scan), vascular studies, neurologic studies, specialist consultation, and proceeding with surgical management, as appropriate.
[2018-02-05] MEDS ORDERED: Bupivacaine PF 0.75% Inj 10 ML Vial ONE (12:10)
[2018-02-05] MEDS: Heparin - SQ 10,000 UNITS/ML Vial SQ SCH ×2 (12:43→23:42)
[2018-02-05] MEDS: Pantoprazole Inj 40 MG Vial IV.PUSH SCH (15:16)
--- NOTE | 2018-02-05 16:21 | P.PNIM ---
Subjective Interval history: Follow-up intractable low back pain with radiation down right leg, fall injury, acute urinary retention Patient seen and examined while resting in bed. She experiences no pain while resting, however, reports severe pain with any type of movement. Mccall catheter remains in place. Patient denies any numbness or tingling to her right lower extremity. She further denies any weakness to her bilateral lower extremities. Physical Exam Vital signs: Last Vital Signs Temp 98.2 F 02/05/18 16:09 Pulse 106 H 02/05/18 16:09 Resp 20 02/05/18 16:09 BP 148/87 H 02/05/18 16:09 Pulse Ox 90 L 02/05/18 16:09 Intake & Output 02/03/18 02/04/18 02/05/18 02/06/18 06:59 06:59 06:59 06:59 Intake Total 680 / 680 Output Total 600 / 600 2950 / 2950 Balance -600 / -600 -2270 / -2270 Weight 61.235 kg 63.3 kg 63.3 kg Narrative: GENERAL: no acute distress, well developed, well nourished SKIN: warm and dry HEAD: normocephalic, atraumatic EYES: no scleral icterus. No injection or drainage. NECK: Supple, trachea midline. No JVD or lymphadenopathy. CARDIOVASCULAR: Regular rate and rhythm without murmurs, gallops, or rubs. RESPIRATORY: Breath sounds equal bilaterally. No accessory muscle use. GASTROINTESTINAL: Abdomen soft, non-tender, nondistended. MUSCULOSKELETAL: No cyanosis, or edema. BACK: Nontender without obvious deformity. No CVA tenderness. Urinary Catheter Management Straight: Cath placed during this visit: yes Urethral indwelling: Yes Reason for continuing: Acute urinary retention Insertion date: 02/04/18 Insertion time: 10:14 Indwelling Urethral Catheter: Cath placed during this visit: no Urethral indwelling: Yes Results Labs CBC & Chem 7: 02/04/18 10:41 02/04/18 10:41 Labs: Microbiology 02/04/18 10:14 Catheterized Urine Urine Culture - Preliminary Group D Enterococcus Assessment and Plan (1) Degenerative lumbar spinal stenosis: Code(s): M48.061 - Spinal stenosis, lumbar region without neurogenic claudication Status: Acute Plan 87-year-old white female with a history of hypertension, hyperlipidemia, hypothyroidism, chronic low back pain with acute exacerbation leading to a fall. Status post fall due to acute exacerbation of chronic back pain with right radiculopathy -CT lumbar spine revealed severe lumbar stenosis -MRI of lumbar spine completed and shows significant thecal sac stenosis L3-4, L4-5, moderate to severe thecal sac stenosis L1-2.2. Multilevel spondylolisthesis on a chronic and degenerative basis worse at L1-2.3. Neural foraminal compromise bilateral L1-2, bilateral L3-4, bilateral L4-5, right L2- 3.4. Slight thecal sac stenosis L5-S1. -pt states that she will follow-up with Dr. Tan Pfeiffer for further evaluation should the pain not improve. Due to her age she is not contemplating surgery at this time. Dr Pfeiffer's group consulted as patient is experiencing acute urinary retention with above findings on MRI. We appreciate their input. -pain control, anti-inflammatory, physical therapy to evaluate gait and balance -continue trial of gabapentin, trial of lidocaine patch -continue Methylprednisolone 4 mg PO daily -IR consult for epidural steroid injection vs nerve root injection per Ortho Acute urinary retention -post void residual of 600 ml by bladder scan -mccall cath placed with 650 ml out -voiding trial tomorrow CXR with probable mass -CT chest w/ no evidence of concerning mass Leukocytosis -no signs of active infection likely due to stress reaction and recent steroid use History of hypertension resume home amlodipine and losartan History hyperlipidemia resume statin History of hypothyroidism -resume levothyroxine Hypokalemia recheck K level, replete if indicated MDM: self Code: Full GI ppx: PPI DVT prophylaxisheparin Progress Note: Quality VTE Deep Vein Thrombosis/Pulmonary Embolism Present on Admission: No
[2018-02-06 05:10] LABS: Calcium 8.5 mg/dL (8.5-10.1); Carbon Dioxide 27.2 meq/L (21.0-32.0)
[2018-02-06] MEDS: Levothyroxine 75 MCG Tablet PO SCH (05:41)
[2018-02-06] MEDS: Lidocaine 5% Patch T-DERMAL SCH (09:27)
[2018-02-06] MEDS: Senna/Docusate Sodium 8.6/50 MG Tablet PO SCH ×2 (09:29→22:05)
[2018-02-06] MEDS: amLODIPine 5 MG Tablet PO SCH (09:30)
[2018-02-06] MEDS: Gabapentin 100 MG Capsule PO SCH ×3 (09:30→19:24)
[2018-02-06] MEDS: Heparin - SQ 10,000 UNITS/ML Vial SQ SCH ×2 (11:23→22:05)
--- NOTE | 2018-02-06 16:45 | P.PNIM ---
Subjective Interval history: Follow up spinal stenosis, right lower extremity pain, s/p nerve block Patient seen and examined while resting in bed. She is pending PT evaluation. Patient reports minimal pain when lying still. Her son is at the bedside. Patient reports mild numbness to her right hamstring area. She denies any lower extremity weakness. Able to move all extremities. Patient denies any fevers or chills. Physical Exam Vital signs: Last Vital Signs Temp 98.2 F 02/06/18 12:00 Pulse 109 H 02/06/18 12:00 Resp 22 02/06/18 12:00 BP 166/86 H 02/06/18 12:00 Pulse Ox 92 L 02/06/18 12:00 Intake & Output 02/04/18 02/05/18 02/06/18 02/07/18 06:59 06:59 06:59 06:59 Intake Total 680 / 680 500 / 500 Output Total 600 / 600 2950 / 2950 850 / 850 Balance -600 / -600 -2270 / -2270 -350 / -350 Weight 63.3 kg 63.3 kg Narrative: GENERAL: no acute distress, well developed, well nourished SKIN: warm and dry HEAD: normocephalic, atraumatic EYES: no scleral icterus. No injection or drainage. NECK: Supple, trachea midline. No JVD or lymphadenopathy. CARDIOVASCULAR: Regular rate and rhythm without murmurs, gallops, or rubs. RESPIRATORY: Breath sounds equal bilaterally. No accessory muscle use. GASTROINTESTINAL: Abdomen soft, non-tender, nondistended. MUSCULOSKELETAL: No cyanosis, or edema. BACK: Nontender without obvious deformity. No CVA tenderness. Urinary Catheter Management Straight: Cath placed during this visit: yes Urethral indwelling: Yes Reason for continuing: Acute urinary retention Insertion date: 02/04/18 Insertion time: 10:14 Indwelling Urethral Catheter: Cath placed during this visit: no Urethral indwelling: Yes Results Labs CBC & Chem 7: 02/04/18 10:41 02/06/18 04:26 Labs: Microbiology 02/04/18 10:14 Catheterized Urine Urine Culture - Final Enterococcus faecalis Assessment and Plan (1) Degenerative lumbar spinal stenosis: Code(s): M48.061 - Spinal stenosis, lumbar region without neurogenic claudication Status: Acute Plan 87-year-old white female with a history of hypertension, hyperlipidemia, hypothyroidism, chronic low back pain with acute exacerbation leading to a fall. Status post fall due to acute exacerbation of chronic back pain with right radiculopathy -CT lumbar spine revealed severe lumbar stenosis -MRI of lumbar spine completed and shows significant thecal sac stenosis L3-4, L4-5, moderate to severe thecal sac stenosis L1-2.2. Multilevel spondylolisthesis on a chronic and degenerative basis worse at L1-2.3. Neural foraminal compromise bilateral L1-2, bilateral L3-4, bilateral L4-5, right L2- 3.4. Slight thecal sac stenosis L5-S1. -Dr Pfeiffer's group consulted as patient is experiencing acute urinary retention with above findings on MRI. We appreciate their input. -pain control, anti-inflammatory, physical therapy to evaluate gait and balance -continue trial of gabapentin, trial of lidocaine patch -continue Methylprednisolone 4 mg PO daily -IR consult and patient s/p nerve block 02/05/18 -PT eval 02/06/18 pt reports severe pain to right lower extremity Acute urinary retention -post void residual of 600 ml by bladder scan -mccall cath placed with 650 ml out -voiding trial in am CXR with probable mass -CT chest w/ no evidence of concerning mass Leukocytosis -no signs of active infection likely due to stress reaction and recent steroid use History of hypertension resume home amlodipine and losartan History hyperlipidemia resume statin History of hypothyroidism -resume levothyroxine Hypokalemia - resolved MDM: self Code: Full GI ppx: PPI DVT prophylaxisheparin Discussed Condition With: RN, patient, son, CM Progress Note: Quality VTE Deep Vein Thrombosis/Pulmonary Embolism Present on Admission: No
[2018-02-06] MEDS: Pantoprazole Inj 40 MG Vial IV.PUSH SCH (19:24)
[2018-02-07] MEDS: Levothyroxine 75 MCG Tablet PO SCH (06:36)
[2018-02-07 07:18] LABS: Baso % (Auto) 0.1 % (0.0-2.0); Hematocrit 48.4 % (35.0-46.0); Hemoglobin 16.9 gm/dL (11.6-15.3); Lymph # (Auto) 1.6 th/mm3 (1.0-4.8); Lymph % (Auto) 11.5 % (9.0-44.0); Mean Corpuscular HGB Conc 34.9 % (32.0-36.0); Mean Corpuscular Hemoglobin 32.4 pg (27.0-34.0); Mean Corpuscular Volume 92.6 fL (80.0-100.0); Mean Platelet Volume 7.5 fL (7.0-11.0); Mono % (Auto) 7.2 % (0.0-8.0); Neut # (Auto) 11.2 th/mm3 (1.8-7.7); Neut % (Auto) 81.2 % (16.0-70.0); Platelet Count 384 th/mm3 (150-450); Red Blood Count 5.22 mil/mm3 (4.00-5.30); Red Cell Distribution Width 14.3 % (11.6-17.2); White Blood Count 13.9 th/mm3 (4.0-11.0)
[2018-02-07 07:46] LABS: Calcium 8.8 mg/dL (8.5-10.1); Potassium 4.2 meq/L (3.5-5.1)
[2018-02-07] MEDS: Lidocaine 5% Patch T-DERMAL SCH (10:08)
[2018-02-07] MEDS: Gabapentin 100 MG Capsule PO SCH ×3 (10:09→17:39)
[2018-02-07] MEDS: Senna/Docusate Sodium 8.6/50 MG Tablet PO SCH ×2 (10:09→22:16)
[2018-02-07] MEDS: amLODIPine 5 MG Tablet PO SCH (10:10)
[2018-02-07] MEDS: Heparin - SQ 10,000 UNITS/ML Vial SQ SCH ×2 (10:17→22:15)
--- NOTE | 2018-02-07 12:35 | P.PNIM ---
Subjective Interval history: Follow up spinal stenosis s/p nerve block Patient seen and examined while resting in bed. She reports RLE pain unchanged since receiving nerve block. She will attempt to get up with PT for evaluation and treatment and pain meds have been administered by RN. Patient reports it feels as if a bunch of needles are sticking her and she is having sharp pain from her lower back with radiation down her right leg with movement and especially when attempting to bear weight. No loss of bowel or bladder function. Physical Exam Vital signs: Last Vital Signs Temp 97.6 F 02/07/18 11:40 Pulse 78 02/07/18 11:40 Resp 16 02/07/18 11:40 BP 114/70 02/07/18 11:40 Pulse Ox 93 L 02/07/18 11:40 Intake & Output 02/05/18 02/06/18 02/07/18 02/08/18 06:59 06:59 06:59 06:59 Intake Total 680 / 680 500 / 500 118 / 118 Output Total 2950 / 2950 850 / 850 650 / 650 Balance -2270 / -2270 -350 / -350 -650 / -650 118 / 118 Weight 63.3 kg Narrative: GENERAL: no acute distress, well developed, well nourished SKIN: warm and dry HEAD: normocephalic, atraumatic EYES: no scleral icterus. No injection or drainage. NECK: Supple, trachea midline. No JVD or lymphadenopathy. CARDIOVASCULAR: Regular rate and rhythm without murmurs, gallops, or rubs. RESPIRATORY: Breath sounds equal bilaterally. No accessory muscle use. GASTROINTESTINAL: Abdomen soft, non-tender, nondistended. MUSCULOSKELETAL: No cyanosis, or edema. BACK: Nontender without obvious deformity. No CVA tenderness. Urinary Catheter Management Straight: Cath placed during this visit: yes Urethral indwelling: Yes Reason for continuing: Decision to DC catheter Insertion date: 02/04/18 Insertion time: 10:14 Indwelling Urethral Catheter: Cath placed during this visit: no Urethral indwelling: Yes Results Labs CBC & Chem 7: 02/07/18 06:47 02/07/18 06:47 Labs: Microbiology 02/04/18 10:14 Catheterized Urine Urine Culture - Final Enterococcus faecalis Assessment and Plan (1) Degenerative lumbar spinal stenosis: Code(s): M48.061 - Spinal stenosis, lumbar region without neurogenic claudication Status: Acute Plan 87-year-old white female with a history of hypertension, hyperlipidemia, hypothyroidism, chronic low back pain with acute exacerbation leading to a fall. Status post fall due to acute exacerbation of chronic back pain with right radiculopathy -CT lumbar spine revealed severe lumbar stenosis -MRI of lumbar spine completed and shows significant thecal sac stenosis L3-4, L4-5, moderate to severe thecal sac stenosis L1-2.2. Multilevel spondylolisthesis on a chronic and degenerative basis worse at L1-2.3. Neural foraminal compromise bilateral L1-2, bilateral L3-4, bilateral L4-5, right L2- 3.4. Slight thecal sac stenosis L5-S1. -Dr Pfeiffer's group consulted as patient is experiencing acute urinary retention with above findings on MRI. We appreciate their input. -pain control, anti-inflammatory, physical therapy to evaluate gait and balance -continue trial of gabapentin, trial of lidocaine patch -IR consult and patient s/p nerve block 02/05/18 -PT eval 02/07/18 pt w/ difficulty weight bearing to RLE d/t pain. Max assist. Acute urinary retention -post void residual of 600 ml by bladder scan -mccall cath placed with 650 ml out -d/c mccall catheter and attempt voiding trial CXR with probable mass -CT chest w/ no evidence of concerning mass Leukocytosis -no signs of active infection likely due to stress reaction and recent steroid use History of hypertension -normotensive resume home amlodipine and losartan History hyperlipidemia resume statin History of hypothyroidism -resume levothyroxine Hypokalemia - resolved MDM: self Code: Full GI ppx: PPI DVT ppx: heparin SQ Discussed Condition With: RN, patient, son at bedside Progress Note: Quality VTE Deep Vein Thrombosis/Pulmonary Embolism Present on Admission: No
[2018-02-07] MEDS: Pantoprazole Inj 40 MG Vial IV.PUSH SCH (15:15)
[2018-02-07] MEDS ORDERED: Sodium Chlor 0.9% Inj 500 ML IV.SIG SCH (23:28)
[2018-02-08] MEDS: Levothyroxine 75 MCG Tablet PO SCH (05:55)
--- NOTE | 2018-02-08 07:50 | P.PNOP ---
Subjective Interval history: s/p DDD of lumbar spine s/p injections of lumbar spine this week reports mild improvement of symptoms but still unable to ambulate Physical Exam Vital signs: Vital Signs 02/07/18 11:40 02/07/18 15:57 02/07/18 20:00 Temperature 97.6 F 97.8 F 98.2 F Pulse Rate 78 79 71 Respiratory Rate 16 16 16 Blood Pressure 114/70 141/77 H 139/67 Pulse Oximetry 93 L 91 L 92 L 02/07/18 23:58 02/08/18 04:00 02/08/18 07:40 Temperature 98.0 F 98.1 F 97.5 F L Pulse Rate 74 85 87 Respiratory Rate 16 14 18 Blood Pressure 146/70 H 142/80 H 179/97 H Pulse Oximetry 93 L 95 94 L Intake & Output 02/07/18 02/08/18 02/08/18 18:59 06:59 18:59 Intake Total 158 / 158 1300 / 1300 Output Total 300 / 300 700 / 700 Balance -142 / -142 600 / 600 Intake: IV 500 / 500 NS Inj 500 ML @ 1000 mls/hr IV. 500 / 500 SIG BOLUS KRYSTAL Rx#:[id number] Oral 158 / 158 800 / 800 Output: Urine Amount (Catheter) 300 / 300 700 / 700 Indwelling Urethral Catheter 300 / 300 300 / 300 Straight 400 / 400 Other: Date of Last Bowel Movement 02/03/18 Narrative: BLE: full sensation. strong dorsiflexion - Urinary Catheter Management Straight Cath placed during this visit: yes Urethral indwelling: Yes Reason for continuing: Not indwelling catheter Insertion date: 02/08/18 Insertion time: 02:00 Indwelling Urethral Catheter Cath placed during this visit: yes, but has since been removed by the nurse Urethral indwelling: Yes Reason for continuing: Decision to DC catheter Removal date: 02/07/18 Removal time: 16:01 Results - Labs CBC & Chem 7: 02/07/18 06:47 02/07/18 06:47 Laboratory Results - last 24 hr 02/07/18 06:47 Sodium 141 Potassium 4.2 Chloride 104 Carbon Dioxide 28.0 Anion Gap 9 BUN 23 H Creatinine 0.74 Estimated GFR 74 L Random Glucose 109 H Calcium 8.8 Assessment and Plan - Assessment and Plan 1) Degenerative disk Disease with lumbar spinal stenosis -encouraged her to continue to work with therapy on ambulation -she saw mild improvement from injection -going to rehab -will need to follow up with Dr Tan Pfeiffer on outpatient basis
[2018-02-08] MEDS: Senna/Docusate Sodium 8.6/50 MG Tablet PO SCH (09:14)
[2018-02-08] MEDS: amLODIPine 5 MG Tablet PO SCH (09:15)
[2018-02-08] MEDS: Gabapentin 100 MG Capsule PO SCH ×2 (09:15→13:47)
[2018-02-08] MEDS: Lidocaine 5% Patch T-DERMAL SCH (09:16)
--- NOTE | 2018-02-08 09:28 | P.DS ---
DS: Providers Date of admission: 02/03/18 11:07 Primary care physician: UNKNOWN Consults: 02/04/18 13:35 HUB Only Consult Order Routine Consulting Provider: Sheri Wade 02/04/18 15:30 Consult to Orthopedic Surgery Routine Consulting Provider: Glenn Jaramillo Chief Operator Reformer:: Glenn Jaramillo Patient known to:: Tan Pfeiffer Reason for Consultation: abnormal MRI lumbar spine w/ moderate to severe thecal sac stenosis, neural foraminal compromise, acute urinary retention. Pt follows up with Dr Pfeiffer outpatient. Notified:: Service Spoke with:: BAILEY Date Notified:: 02/04/18 Time Notified:: 15:43 Ordering Provider: MARY 02/07/18 11:24 HUB Only Consult Order Routine Consulting Provider: [facility] Anticipated date of discharge: 02/08/18 Brief History from admission: 87-year-old white female with a history of chronic low back pain, hyperlipidemia, hypertension, hypothyroidism presents emergency room after she fell yesterday evening secondary to worsening of her chronic low back pain now with radiation towards her right lower leg with mild right lateral thigh numbness. Patient states that she landed on her right side and since then had difficulty getting up and putting weight and ambulating. She usually ambulates independently. She has had chronic low back pain for many years and stated that during the past 4 days this pain has exacerbated and therefore contacted her primary care physician who started her on a Medrol Dosepak. She took her first steroid dose yesterday morning with no relief. She reports she had previous neck surgery with Dr. Tan Pfeiffer and at this time would follow-up with him as an outpatient for her chronic back pain and lumbar stenosis. She denies loss of consciousness from the fall. She states that she currently lives alone. DS: Diagnosis Discharge Diagnosis (1) Degenerative lumbar spinal stenosis: Status: Acute Diagnosis: Principal (2) Acute urinary retention: Status: Acute Diagnosis: Principal (3) Hypokalemia: Status: Acute Diagnosis: Principal (4) Hypertension: Status: Acute Diagnosis: Secondary (5) Dyslipidemia: Status: Acute Diagnosis: Secondary DS: Summary Pa Patient complained of severe needle stick, sharp pain from her right buttock radiating down her right leg. She also was noted to have acute urinary retention with > 600 ml of urine on bladder scan. A mccall catheter was inserted and a MRI of the lumbar spine was obtained. This showed severe spinal stenosis and thecal sac stenosis at several levels of the lumbar spine. Patient reported that she follows up with photo lab specialist Dr Pfeiffer as an outpatient. Patient was seen in consultation by Dr Jaramillo who was covering for the group with recommendations for IR consult to evaluate for epidural steroid injection vs nerve block. Patient underwent a nerve block 02/05/18. She reported minimal relief in her pain level post procedure. She endorsed severe pain when attempting to bear weight onto her right lower extremity. Physical therapy was consulted and recommended acute short term rehab. Ortho signed off with recommendations for continued physical therapy at a SNF and outpatient follow up with DR Pfeiffer. Prior to discharge a voiding trial was attempted, however, this was unsuccessful. A repeat bladder scan showed > 800 ml of urine and mccall catheter was re-inserted. All questions were answered at the bedside. Case management assited with arranging SNF placement and transportation. Patient was hemodynamically stable at time of discharge. [place] Prescription Drug Monitoring Database has been queried and verified prior to prescribing the controlled substance. Acute pain exception: This patient has normal, predicted, physiological, and time limited response to an adverse mechanical stimulus associated with surgery , trauma, or acute illness as described in my notes. There is a lack of alternative treatment options other than to include the prescribed narcotic treatment for this condition. Time Spent with Patient Total time spent providing and/or coordinating discharge services: Greater than 30 minutes Status at Discharge Functional status at discharge: uses cane/walker Overall status at discharge: patient is progressing back to baseline Quality: VTE Deep Vein Thrombosis/Pulmonary Embolism Present on Admission: No Exam Narrative Exam Narrative: GENERAL: no acute distress, well developed, well nourished SKIN: Warm and dry. HEAD: Normocephalic, atraumatic EYES: No scleral icterus. No injection or drainage. NECK: Supple, trachea midline. No JVD or lymphadenopathy. CARDIOVASCULAR: Regular rate and rhythm without murmurs, gallops, or rubs. RESPIRATORY: Breath sounds equal bilaterally. No accessory muscle use. GASTROINTESTINAL: Abdomen soft, non-tender, nondistended. MUSCULOSKELETAL: No cyanosis, or edema. Decreased ROM RLE secondary to pain. BACK: Nontender without obvious deformity. No CVA tenderness. Results Impressions ITS Impressions Chest X-Ray 02/03/18 05:44 CONCLUSION: No acute cardiopulmonary process. Focal increased density at the left base projecting over the left cardiac apex and the anterior fourth left rib. Uncertain if this represents some focal increased density related to the rib or potentially an underlying mass. This could be followed up with a future chest x-ray. Hip X-Ray 02/03/18 05:45 CONCLUSION: No acute abnormality is seen. Knee X-Ray 02/03/18 06:31 CONCLUSION: Mild degenerative change. No evidence of acute abnormality. Lumbar Spine CT 02/03/18 07:03 CONCLUSION: 1. No evidence of fracture. Severe degenerative changes seen throughout the imaged thoracic and lumbar spine resulting in multiple levels of severe central canal stenosis and neuroforaminal stenosis. Pelvis CT 02/03/18 07:03 CONCLUSION: 1. Severe degenerative changes within the lumbar spine. This is better described on comparison CT lumbar spine which demonstrates multiple levels of central canal stenosis and bilateral neuroforaminal stenosis which is worse on the right. No evidence of fracture. Chest CT 02/04/18 00:00 CONCLUSION: 1. The airspace abnormality seen on comparison plain radiograph corresponds with an area of progressive scarring and consolidation involving the lingula. No evidence of concerning mass. Lumbar Spine MRI 02/04/18 00:00 CONCLUSION: 1. 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 2. Multilevel spondylolisthesis on a chronic and degenerative basis worse at L1 -2. 3. Neural foraminal compromise bilateral L1-2, bilateral L3-4, bilateral L4-5, right L2-3. 4. Slight thecal sac stenosis L5-S1. Discharge Plan Discharge Disposition Patient Disposition: Discharge to SNF Discharge Condition Condition: Stable Discharge Order Discharge Orders: Discharge Order (Routine); Ordered 02/08/18 Ordered By: Tory Juarez Discharge Details Anticipated Discharge Date: 02/08/18 Discharge Comment: Ok to discharge patient with Mccall catheter. Physicians Team Primary Care Provider: UNKNOWN, Attending Provider: Kelsey Birmingham Other Providers: Sheri Wade ; Glenn Jaramillo ; [facility] Rxs /Orders / Referrals /Forms Prescriptions: New cyclobenzaprine 10 mg Tablet 10 mg PO Q8H PRN (Reason: Spasm) 4 Days Qty: 12 RF: 0 hydrocodone-acetaminophen 10-325 mg Tablet 1 tab PO Q6H PRN (Reason: Pain Scale 6 To 10) Qty: 8 RF: 0 gabapentin 100 mg Capsule 100 mg PO TID Qty: 90 RF: 0 Remove Old Patch 1 each Transdermal HS Qty: 0 RF: 0 lidocaine [Lidoderm] 5 % Adhesive Patch,Medicated 1 patch Transdermal DAILY Qty: 0 RF: 0 Continue atorvastatin 10 mg Tablet 20 mg PO DAILY RF: 0 losartan 25 mg Tablet 25 mg PO DAILY RF: 0 levothyroxine 13 mcg Capsule 75 mcg PO DAILY RF: 0 amlodipine 5 mg PO DAILY RF: 0 Discontinued methylprednisolone [Medrol (Alfa)] 4 mg Tablets,Dose Pack 4 mg PO DAILY RF: 0 Referrals: UNKNOWN, [Primary Care Provider] - See Instructions Discharge Instructions Patient Printed Instructions: Hydrocodone/Acetaminophen (By mouth), Cyclobenzaprine (By mouth), Gabapentin (By mouth), Lidocaine Patch (On the skin) , Acute Low Back Pain (GEN), Chronic Back Pain (DC) Additional Instructions: Your Health Problems: Goals to Promote Your Health: * To prevent worsening of your condition * To maintain your health at the optimal level Directions to Meet Your Goals: * Take your medications as prescribed * Follow your dietary instruction * Follow activity as directed * Keep your appointments as scheduled * Take your immunizations and boosters as scheduled * If your symptoms worsen call your PCP * If no PCP go to Urgent Care or Emergency Room Smoking is dangerous to your health. Avoid second hand smoke. You may reach the 24-hour crisis hotline for domestic abuse at . Status ED Status: Left Department Discharge Information Discharge Date/Time: 02/08/18 14:49
[2018-02-08] MEDS: Heparin - SQ 10,000 UNITS/ML Vial SQ SCH (12:19)
[2018-02-08 12:25] VITALS: BP 157/81; PULSE 83; RESP 16; TEMP 98.2; O2SAT 92
--- NOTE | 2018-02-16 18:11 | IR ---
EXAM DATE: 02/05/2018 1:18 PM EST AGE/SEX: 87 years / Female INDICATIONS: Patient presents with right side lower back pain in need of a Nerve Root steroid inject ion. CLINICAL DATA: This is the patient's initial encounter. Patient reports that signs and symptoms have been present for 1 day and indicates a pain score of 2/10. MEDICAL/SURGICAL HISTORY: Hypertension. Hypothyroid, High cholesterol. . Cervical spine fusion . COMPARISON: [facility] [place], MR LUMBAR SPINE W/O CONTRAST, 02/04/2018. . FLUORO TIME (min): 2.2 IMAGE SERIES: 8 RADIATION DOSE: 1704.2 DAP ACCESS SITE: Right L4-L5, L5-S1 CONTRAST (cc): 2 Omnipaque (iohexol) 300 MEDICATION(S): 80 mg triamcinolone (Kenalog) IA 2 ml bupivacaine (Marcaine) IA RESPONSE: Pain Score Pre Procedure: 2/10 Pain Score Post Procedure: 4/10 . . PROCEDURE : 1. Fluoroscopically guided nerve root injection. The risks, benefits and alternatives to the procedure were explained and verbal and written consent w as obtained. The site was prepped in sterile fashion. Full sterile technique was used, including ca p, mask, sterile gloves and gown and a large sterile sheet. Hand hygiene and 2% chlorhexidine and/or betadine/alcohol prep was utilized per protocol for cutaneous antisepsis. The skin and subcutaneous tissues were infiltrated with local anesthetic solution. With fluoroscopic guidance the targeted nerve root was localized and positive contrast was injected t o confirm epidural spread. Following this the prescribed medication was injected surrounding the ner ve root sleeve. The patient's preprocedure pain and post procedure pain levels were recorded. CONCLUSION: 1. Uncomplicated fluoroscopically guided nerve root injection as above. Electronically signed by: Stephen Matthews MD Board Certified Radiologist 02/16/2018 6:09 PM RIGOBERTO Munoz
== END 2018-02-08 14:49 ==
LOC: NEDA 05:26 → NEPE 05:26 → NEPHCDU 15:41 → NEDA 15:41
PROVIDERS: ADMIT Internal Medicine; ATTEND Internal Medicine